=== PATIENT | male | born 1970 | race Caucasian/White ===

== ENCOUNTER → 2018-03-16 | Outpatient (CLI) | payer OTHER | LOC: FIMAGING 08:34 | PROVIDERS: ATTEND Surgery | DX: M25.852 Other specified joint disorders, left hip (principal); R93.5 Abnormal findings on diagnostic imaging of other abdominal regions, including retroperitoneum ==

== ENCOUNTER 2018-03-24 06:56 | Day surgery (SDC) | payer OTHER ==
[2018-03-24] MEDS ORDERED: ceFAZolin 2 GM/DEXTROSE 100 ML IV ONE (07:20)
[2018-03-24] MEDS ORDERED: LIDOCAINE 1% 2 ML INJ ID PRN (07:21)
[2018-03-24] MEDS ORDERED: LR 1,000 ML IV ONE (07:21)
[2018-03-24] MEDS ORDERED: CEFAZOLIN 2 GM/DEXTROSE/100 ML BAG IV ONE (07:31)
--- NOTE | 2018-03-24 07:59 | PDHPUP ---
History & Physical Update H&P update statement: This history and physical update is based on an assessment of the patient which was completed after admission or registration (within 24 hours), but prior to the surgery/procedure. H&P update: H&P reviewed & patient examined, no change in patient's condition since H&P completed
[2018-03-24] MEDS ORDERED: MIDAZOLAM 2 MG/2 ML VIAL IVP ONE (08:06)
[2018-03-24] MEDS ORDERED: MIDAZOLAM 2 MG/2 ML VIAL ONE (08:07)
--- NOTE | 2018-03-24 08:07 | PDANEPAE ---
ANE History of Present Illness lap ing hernia ANE Past Medical History - Cardiovascular History Hx Hypertension: No Hx Arrhythmias: No Hx Chest Pain: No Hx Coronary Artery / Peripheral Vascular Disease: No Hx CHF / Valvular Disease: No Hx Palpitations: No - Pulmonary History Hx COPD: No Hx Asthma/Reactive Airway Disease: No Hx Recent Upper Respiratory Infection: No Hx Oxygen in Use at Home: No Hx Sleep Apnea: No Sleep Apnea Screening Result - Last Documented: Negative - Neurologic History Hx Cerebrovascular Accident: No Hx Seizures: No Hx Dementia: No - Endocrine History Hx Diabetes: Yes Endocrine History Comment: PCP IS WATCHING WEIGHT AND LABS - Renal History Hx Renal Disorders: No - Liver History Hx Hepatic Disorders: No - Neurological & Psychiatric Hx Hx Neurological and Psychiatric Disorders: No - Cancer History Hx Cancer: No - Congenital Disorder History Hx Congenital Disorders: No - GI History Hx Gastrointestinal Disorders: No - Other Health History Other Health History: NONE - Chronic Pain History Chronic Pain: Yes - Surgical History Prior Surgeries: APPY IN MID 20S ANE Review of Systems Review of Systems: - Exercise capacity Exercise capacity: >=4 METS METS (RN): 4 METS ANE Patient History - Allergies Allergies/Adverse Reactions: No Known Allergies Allergy (Verified 03/23/18 17:47) - Home Medications Home Medications: NK [No Known Home Meds] 06/29/13 [Last Taken Unknown] - NPO status NPO Status: no food or drink >8 hours NPO Since - Liquids (Date): 03/23/18 NPO Since - Solids (Date): 03/23/18 - Anes Hx Anes Hx: no prior problems - Smoking Hx Smoking Status: Never smoked - Family Anes Hx Family Hx Anesthesia Complications: NONE ANE Labs/Vital Signs - Vital Signs Blood Pressure: 129/89 Heart Rate: 55 Respiratory Rate: 16 O2 Sat (%): 93 Height: 175.26 cm Weight: 92.986 kg ANE Physical Exam - Airway Mallampati Score: Class 2 Mouth exam: normal dental/mouth exam - Pulmonary Pulmonary: no respiratory distress - Cardiovascular Cardiovascular: regular rate and rhythym - ASA Status ASA Status: II ANE Anesthesia Plan Anesthesia Plan: general endotracheal anesthesia, GA w LMA
[2018-03-24] MEDS ORDERED: KETOROLAC 30 MG/1 ML SDV ONE ×2 (08:08→08:09)
[2018-03-24] MEDS ORDERED: PROPOFOL 200 MG/20 ML VIAL ONE (08:08)
[2018-03-24] MEDS ORDERED: ROCURONIUM 50 MG/5 ML VIAL ONE (08:08)
[2018-03-24] MEDS ORDERED: fentaNYL 100 MCG/2 ML INJ ONE ×3 (08:08→09:47)
[2018-03-24] MEDS ORDERED: ONDANSETRON 4 MG/2 ML VIAL ONE (08:08)
[2018-03-24] MEDS ORDERED: LIDOCAINE 2% 2 ML INJ ONE ×3 (08:08)
[2018-03-24] MEDS ORDERED: SUCCINYLCHOLINE CHLORIDE 200 MG/10 ML SYR IVP ONE (08:12)
[2018-03-24] MEDS ORDERED: BUPIVACAINE 0.5% 30 ML SDV ONE (08:26)
[2018-03-24] MEDS ORDERED: LABETALOL HCL 5 MG/ML 20 ML MDV ONE (08:57)
[2018-03-24] MEDS ORDERED: ALBUTEROL 3 ML DEYVIAL IH PRN (09:07)
[2018-03-24] MEDS ORDERED: NALOXONE HCL 0.4 MG/ML INJ IVP PRN (09:07)
[2018-03-24] MEDS ORDERED: LABETALOL HCL 5 MG/ML 20 ML MDV IVP PRN (09:07)
[2018-03-24] MEDS ORDERED: LR 500 ML IV PRN (09:07)
[2018-03-24] MEDS ORDERED: ONDANSETRON 4 MG/2 ML VIAL IVP PRN (09:07)
[2018-03-24] MEDS ORDERED: SUGAMMADEX SODIUM 200 MG/2 ML VIAL IVP ONE (09:14)
--- NOTE | 2018-03-24 09:32 | POSTOPPROG ---
Post Op Note Date of Operation: 03/24/18 Surgeon: King Calvillo Vineyard Supervisor: Sam Anesthesiologist: Cachorro Anesthesia: GET(General Endotracheal) Pre-op Diagnosis: Left inguinal hernia Post-op Diagnosis: Left femoral hernia, umbilical hernia Indication: pain Procedure: Open umbilical and lap left femoral hernia repairs Findings: Direct left femoral hernia Inf/Abcess present in the surg proc area at time of surgery?: No Depth: Organ Space EBL: Minimal
[2018-03-24] MEDS ORDERED: ENALAPRILAT DIHYDRATE 1.25 MG/ML VIAL ONE (09:34)
[2018-03-24] MEDS ORDERED: ENALAPRILAT DIHYDRATE 1.25 MG/ML VIAL IVP PRN (09:34)
[2018-03-24] MEDS: fentaNYL 100 MCG/2 ML INJ IVP PRN ×2 (09:49→10:08)
[2018-03-24] MEDS ORDERED: OXYCODONE/APAP 5/325 TAB PO ONE (10:40)
[2018-03-24 11:35] VITALS: BP 122/75
== END 2018-03-24 11:55 | disposition home or self-care (01) ==
LOC: FSGY 06:56
PROVIDERS: ATTEND Surgery
PROC: 0YU64JZ Supplement Left Inguinal Region with Synthetic Substitute, Percutaneous Endoscopic Approach (ICD-10-PCS; principal; 2018-03-24 08:15)
PROC: 0WQF0ZZ Repair Abdominal Wall, Open Approach (ICD-10-PCS; principal; 2018-03-24 08:15)
DX: K42.9 Umbilical hernia without obstruction or gangrene (principal); K41.90 Unilateral femoral hernia, without obstruction or gangrene, not specified as recurrent
CPT/HCPCS: C1727; C1781; J0330; J0690; J1885; J2250; J2405; J2704; J3010